=== PATIENT | female | born 1985 | race Caucasian/White ===

== ENCOUNTER 2018-03-26 23:00 | Emergency (ER) | payer MEDICAID ==
[2018-03-27 00:38] LABS: APPEARANCE,URINE SLIGHTLY-CLOUDY; BILIRUBIN,URINE NEGATIVE (NEGATIVE); COLOR,URINE YELLOW; GLUCOSE, URINE NEGATIVE (NEGATIVE); KETONES,URINE NEGATIVE (NEGATIVE); LEUKOCYTE ESTERASE,URINE LARGE (NEGATIVE); NITRITE,URINE NEGATIVE (NEGATIVE); PROTEIN,URINE 100 mg/dL (NEGATIVE); URINE SPECIFIC GRAVITY 1.016; UROBILINOGEN,URINE NEGATIVE mg/dL (<2.0)
[2018-03-27] MEDS ORDERED: ONDANSETRON ODT 4 MG TAB (6 TAB/ER DISP) PO PRN (01:11)
[2018-03-27] MEDS ORDERED: LIDOCAINE 1% INJ-PF (10 MG/ML) 30 ML SDV INJ ONE (01:11)
[2018-03-27] MEDS ORDERED: CEFTRIAXONE INJ 1000 MG VIAL IM ONE (01:11)
--- NOTE | 2018-03-27 01:15 | ER Document Report ---
ED General - General Chief Complaint: Urinary Problem Stated Complaint: BACK PAIN Time Seen by Provider: 03/27/18 00:08 Mode of Arrival: Ambulatory Information source: Patient Notes: 32-year-old female patient presents the emergency department with urinary frequency and dysuria for the past 10 days with worsening over the last 2 days. Patient reports that she feels like she has a urinary tract infection. Patient states that she has been trying to drink cranberry juice in an attempt to cure it. Patient reports that her last UTI was in 2013. Patient denies any other known medical history. Patient denies any fevers, nausea, vomiting or chills. TRAVEL OUTSIDE OF THE [place] IN LAST 30 DAYS: No - Related Data Allergies/Adverse Reactions: No Known Allergies Allergy (Verified 03/27/18 00:18) Past Medical History - General Information source: Patient - Social History Smoking Status: Never Smoker Cigarette use (# per day): No Chew tobacco use (# tins/day): No Smoking Education Provided: No Frequency of alcohol use: Social Drug Abuse: None Lives with: Spouse/Significant other Family History: Reviewed & Not Pertinent Patient has suicidal ideation: No Patient has homicidal ideation: No - Medical History Medical History: Negative Renal/ Medical History: Denies: Hx Peritoneal Dialysis Past Surgical History: Reports: Hx Tubal Ligation - Immunizations Immunizations up to date: Yes Hx Diphtheria, Pertussis, Tetanus Vaccination: Yes Review of Systems - Review of Systems Constitutional: No symptoms reported EENT: No symptoms reported Cardiovascular: No symptoms reported Respiratory: No symptoms reported Gastrointestinal: No symptoms reported Genitourinary: No symptoms reported Female Genitourinary: See HPI Musculoskeletal: No symptoms reported Skin: No symptoms reported Hematologic/Lymphatic: No symptoms reported Neurological/Psychological: No symptoms reported Physical Exam - Vital signs Vitals: Temp Pulse Resp BP Pulse Ox 98.4 F 87 18 149/94 H 100 03/26/18 23:39 03/26/18 23:39 03/26/18 23:39 03/26/18 23:39 03/26/18 23:39 - Notes Notes: PHYSICAL EXAMINATION: GENERAL: Well-appearing, well-nourished and in no acute distress. HEAD: Atraumatic, normocephalic. EYES: Pupils equal round and reactive to light, extraocular movements intact, conjunctiva are normal. ENT: Nares patent, oropharynx clear without exudates. Moist mucous membranes. NECK: Normal range of motion, supple without lymphadenopathy LUNGS: Breath sounds clear to auscultation bilaterally and equal. No wheezes rales or rhonchi. HEART: Regular rate and rhythm without murmurs ABDOMEN: Soft, nontender, nondistended abdomen. No guarding, no rebound. No masses appreciated. Female : Mild CVA tenderness. Musculoskeletal: Normal range of motion, no pitting or edema. No cyanosis. NEUROLOGICAL: Cranial nerves grossly intact. Normal speech, normal gait. Normal sensory, motor exams PSYCH: Normal mood, normal affect. SKIN: Warm, Dry, normal turgor, no rashes or lesions noted. Course - Re-evaluation Re-evalutation: 32-year-old female presents with UTI symptoms over the last 10 days worsening in the last 48 hours. Patient denies any flank pain however she does have mild CVA tenderness. Patient denies any fever. Patient's urinalysis reveals large leukocytes and >182 white blood cells. Patient denies any history of any kidney stones. Offered patient additional workup to include blood work. Patient did decline any further workup stating that she knows she has a UTI and she would just like to be treated for that. Patient is not tachycardic does not appear to be acutely ill. Due to the excess white blood cells in the urine patient is agreeable to taking a shot of Rocephin here in the emergency department and will be discharged on oral antibiotics as well as urinary anesthetics. Patient was given strict ED return precautions to include returning for worsening pain, development of flank pain or development of fever. Patient does understand these return precautions and agrees to same. - Vital Signs Vital signs: Temp Pulse Resp BP Pulse Ox 98.2 F 84 18 136/85 H 98 03/27/18 01:30 03/27/18 01:30 03/27/18 01:30 03/27/18 01:30 03/27/18 01:30 - Laboratory Laboratory results interpreted by me: 03/27/18 00:10 Urine Protein 100 H Urine Blood SMALL H Ur Leukocyte Esterase LARGE H Discharge - Discharge Clinical Impression: Urinary tract infection Qualifiers: Urinary tract infection type: site unspecified Hematuria presence: with hematuria Qualified Code(s): N39.0 - Urinary tract infection, site not specified Condition: Stable Disposition: HOME, SELF-CARE Additional Instructions: Urinary Tract Infection Your evaluation indicates that you have a urinary tract infection. This is due to germs growing in the bladder. This is a common problem. This infection usually responds quickly to antibiotics. Your antibiotic should be taken exactly as prescribed. Drink plenty of fluids -- three to four quarts a day. Occasionally, a bladder anesthetic will be prescribed to help stop the feeling of urgency until the antibiotic has a chance to clear the infection. This may cause your urine to be dark orange. Certain urine infections require a culture. If the doctor obtained a culture, the results will be back in two days. You should call to see if a change in treatment is needed. A repeat urinalysis after you finish treatment is often recommended. The physician will let you know if further testing is required. Call the doctor if you develop fever, chills, flank pain, inability to urinate, or blood in the urine. Rocephin You have been given an injection of an antibiotic called Rocephin ( ceftriaxone). Sometimes the injection must be combined with antibiotic pills. For some infections, such as an uncomplicated ear infection, Rocephin provides all the antibiotic that's needed. The antibiotic will be in your body for about two days. For serious infections, we usually repeat doses of Rocephin daily. Side effects are very unusual following a shot. Women may develop vaginal yeast infections, and babies can get yeast (thrush) in the mouth following the use of antibiotics. Contact your physician if you have symptoms with this medication. Allergy to this antibiotic can result in hives, wheezing, faintness, or itching. If symptoms of allergy occur, call the doctor at once. Cephalexin The antibiotic you've been prescribed is a member of the cephalosporin class. This type of antibiotic covers a wide variety of infections, including those of the skin, lungs, and urinary tract. It's useful for staph infections. This antibiotic is slightly similar to the penicillin family. In rare cases , a person who is allergic to penicillin will also be allergic to this medication. If you have had a severe allergic reaction to penicillin, and have not taken this antibiotic since that time, notify your doctor. Antibiotics which cover many germs ("broad spectrum" antibiotics) are more likely to cause diarrhea or "yeast" infections. Women prone to vaginal yeast problems may suffer an attack after taking this antibiotic. In infants, oral thrush (white spots "stuck" on the cheek) or yeast diaper rash may result. See your doctor if these problems occur. Call at once if you develop itching, hives , shortness of breath, or lightheadedness. Urinary Anesthetic Agent You have been given a medication for urinary tract discomfort. This medicine numbs the lining of the bladder and urethra, resulting in less pain, burning, and urgency. You may take it as needed, according to instructions. When the symptoms resolve, you can stop this medication (be sure to continue any other medications the doctor has given you). This medicine turns the urine a dark orange. It may stain underwear. Occasionally, it can cause nausea. Return for evaluation if there are any unexpected effects, such as itching, hives, or shortness of breath. Antinausea Medication You have been given a medication to suppress nausea and vomiting. This type of medication can be given as a shot, pill, or suppository. It will usually last for many hours. Pills and shots usually last six to eight hours, suppositories last about 12 hours. For the typical illness, only one or two doses of the medication may be necessary. Mild lightheadedness may occur. This type of medicine can cause drowsiness. Do not drive or operate dangerous machinery while under its influence. Do not mix with alcohol. See your doctor at once if you have muscle spasms or tightness, or uncontrollable motions (particularly of the neck, mouth, or jaw). Persistent vomiting or severe lightheadedness should also be evaluated by the physician. Please keep the established appointment you have with your primary care provider. They can recheck your urine to make sure the infection has cleared. Please return to the emergency department if you develop worsening symptoms such as increasing fever, pain or persistent vomiting. Be sure to complete all of the antibiotics even if your symptoms resolved. Prescriptions: Cephalexin Monohydrate [Keflex 500 mg Capsule] 500 mg PO Q6H 5 Days #20 capsule Ondansetron [Zofran Odt 4 mg Tablet] 1 - 2 tab PO Q4H PRN #15 tab.rapdis PRN Reason: For Nausea/Vomiting Phenazopyridine HCl [Pyridium 100 Mg Tablet] 100 mg PO TID #9 tablet Referrals: ZA LARSEN MD [Primary Care Provider] - Follow up as needed
[2018-03-27] MEDS ORDERED: HYDROCODONE/ACETAMINOPHEN 5-325 MG (6 TAB/ER DISP) PO PRN (01:27)
[2018-03-27 01:33] VITALS: BP 136/85
== END 2018-03-27 01:58 | disposition home or self-care (01) ==
LOC: ER 23:00
DX: N39.0 Urinary tract infection, site not specified (principal); R31.9 Hematuria, unspecified; R35.0 Frequency of micturition; R30.0 Dysuria
CPT/HCPCS: 99283; 96372; 87086; 81025; 87088; 81001; 87186; J3490; J0696

== ENCOUNTER 2018-06-14 15:41 | Emergency (ER) | payer MEDICAID ==
--- NOTE | 2018-06-14 16:24 | RADIOLOGY REPORT (SQ) ---
EXAM DESCRIPTION: SHOULDER LEFT 2 OR MORE VIEWS COMPLETED DATE/TIME: 06/14/2018 4:17 pm REASON FOR STUDY: fall, shoulder pain COMPARISON: None. NUMBER OF VIEWS: Three views. TECHNIQUE: Internal rotation, external rotation, and Y view images acquired of the left shoulder. LIMITATIONS: None. FINDINGS: MINERALIZATION: Normal. BONES: No acute fracture or dislocation. No worrisome bone lesions. JOINTS: No dislocation. VISUALIZED LUNGS AND RIBS: No pneumothorax. No rib fracture. SOFT TISSUES: No radiopaque foreign body. OTHER: No other significant finding. IMPRESSION: NEGATIVE STUDY OF THE LEFT SHOULDER. NO RADIOGRAPHIC EVIDENCE OF ACUTE INJURY. TECHNICAL DOCUMENTATION: JOB ID: [id number] [employer]- All Rights Reserved Reading location - IP/workstation name: [email or web address]
--- NOTE | 2018-06-14 16:26 | ER Document Report ---
ED Extremity Problem, Upper - General Mode of Arrival: Ambulatory Information source: Patient TRAVEL OUTSIDE OF THE [place] IN LAST 30 DAYS: No <MIGUEL ANGEL STYLES - Last Filed: 06/14/18 21:51> <ACE SHAW - Last Filed: 06/19/18 14:43> - General Chief Complaint: Shoulder Injury Stated Complaint: SHOULDER INJURY Time Seen by Provider: 06/14/18 15:57 Notes: 32 y.o female presents to the ED with LUE/shoulder injury that occurred last night around 9:30pm. Pt reports that she was playing with her child and and fell into a door frame. She states that her pain is exacerbated with movement, hurts to breath, sneeze, laugh or turn her neck in certain ways. Pt reports some tingling down the lateral side of her LUE. Pt reports that she takes Iron supplements and 100mg of Zoloft daily (MIGUEL ANGEL STYLES) - Related Data Allergies/Adverse Reactions: No Known Allergies Allergy (Verified 03/27/18 00:18) Past Medical History - General Information source: Patient, [facility] - Social History Smoking Status: Never Smoker Chew tobacco use (# tins/day): No Frequency of alcohol use: Social Drug Abuse: None Family History: Reviewed & Not Pertinent Renal/ Medical History: Denies: Hx Peritoneal Dialysis Past Surgical History: Reports: Hx Tubal Ligation - Immunizations Immunizations up to date: Yes Hx Diphtheria, Pertussis, Tetanus Vaccination: Yes <MIGUEL ANGEL STYLES - Last Filed: 06/14/18 21:51> Review of Systems - Review of Systems Constitutional: No symptoms reported EENT: No symptoms reported Cardiovascular: No symptoms reported Gastrointestinal: No symptoms reported Genitourinary: No symptoms reported Female Genitourinary: No symptoms reported Musculoskeletal: See HPI, Joint pain - LT shoulder Skin: No symptoms reported Hematologic/Lymphatic: No symptoms reported Neurological/Psychological: See HPI, Tingling - laterally to LUE -: Yes All other systems reviewed and negative <MIGUEL ANGEL STYLES - Last Filed: 06/14/18 21:51> Physical Exam <MIGUEL ANGEL STYLES - Last Filed: 06/14/18 21:51> <ACE SHAW - Last Filed: 06/19/18 14:43> - Vital signs Vitals: Temp Pulse Resp BP Pulse Ox 98.5 F 74 20 137/84 H 98 06/14/18 15:46 06/14/18 15:46 06/14/18 15:46 06/14/18 15:46 06/14/18 15:46 - Notes Notes: Physical Exam: General: Alert, appears well. HEENT: Normocephalic. Atraumatic. PERRL. Extraocular movements intact. Oropharynx clear. Neck: Supple. Non-tender. Respiratory: No respiratory distress. Clear and equal breath sounds bilaterally. Cardiovascular: Regular rate and rhythm. Abdominal: Normal Inspection. Non-tender. No distension. Normal Bowel Sounds. Back: Tender to palpate and tightness to LT trapezium and scapular area, No withdrawing, no bruising or abrasions. No deformity or step off. Extremities: TTP to LT trapezium and scapular area, No withdrawing. Moves all four extremities with full ROM. LUE grossly neurovascularly intact. Neurological: Normal cognition. AAOx3. Normal speech. Psychological: Normal affect. Normal Mood. Skin: Warm. Dry. Normal color. (MIGUEL ANGEL STYLES) Course <MIGUEL ANGEL STYLES - Last Filed: 06/14/18 21:51> - Diagnostic Test Radiology reviewed: Reports reviewed <ACE SHAW - Last Filed: 06/19/18 14:43> - Re-evaluation Re-evalutation: 06/14/18 18:44 Negative imaging studies. Patient will be discharged with anti-inflammatories for trapezius cervical strain. Advised patient to follow-up in 2 weeks if symptoms are not improving. (ACE SHAW) - Vital Signs Vital signs: Temp Pulse Resp BP Pulse Ox 97.8 F 67 16 140/84 H 100 06/14/18 18:51 06/14/18 18:51 06/14/18 18:51 06/14/18 18:51 06/14/18 18:51 Discharge <MIGUEL ANGEL STYLES - Last Filed: 06/14/18 21:51> <ACE SHAW - Last Filed: 06/19/18 14:43> - Discharge Clinical Impression: Trapezius muscle strain Qualifiers: Encounter type: initial encounter Laterality: left Qualified Code(s): S46.812A - Strain of other muscles, fascia and tendons at shoulder and upper arm level, left arm, initial encounter Strain, cervical Qualifiers: Encounter type: initial encounter Qualified Code(s): S16.1XXA - Strain of muscle, fascia and tendon at neck level, initial encounter Condition: Good Disposition: HOME, SELF-CARE Instructions: Neck Injury (Cervical Strain) ([facility]), Shoulder Injury ([facility]) Prescriptions: Naproxen 500 mg PO BID #20 tablet Referrals: ZA LARSEN MD [Primary Care Provider] - Follow up as needed Scribe Attestation: 06/19/18 14:43 I personally performed the services described in the documentation, reviewed and edited the documentation which was dictated to the scribe in my presence, and it accurately records my words and actions. (ACE SHAW) Scribe Documentation - Scribe Written by Tereza:: Tereza Joaquin 06/14/18 1704 acting as scribe for :: David <MIGUEL ANGEL STYLES - Last Filed: 06/14/18 21:51>
[2018-06-14] MEDS ORDERED: KETOROLAC TROMETHAMINE 60 MG/2 ML SDV IM ONE (16:51)
--- NOTE | 2018-06-14 17:28 | RADIOLOGY REPORT (SQ) ---
EXAM DESCRIPTION: CLAVICLE LEFT COMPLETED DATE/TIME: 06/14/2018 5:11 pm REASON FOR STUDY: pain in clavicle region COMPARISON: None. NUMBER OF VIEWS: Two views. TECHNIQUE: Frontal and angled images were acquired of the left clavicle. LIMITATIONS: None. FINDINGS: MINERALIZATION: Normal. BONES: No acute fracture or dislocation. No worrisome bone lesions. SOFT TISSUES: No obvious swelling or foreign body. OTHER: No other significant finding. IMPRESSION: NEGATIVE STUDY OF THE LEFT CLAVICLE. NO RADIOGRAPHIC EVIDENCE OF ACUTE INJURY. TECHNICAL DOCUMENTATION: JOB ID: [id number] [employer]- All Rights Reserved Reading location - IP/workstation name: [email or web address]
--- NOTE | 2018-06-14 18:40 | RADIOLOGY REPORT (SQ) ---
EXAM DESCRIPTION: SCAPULA LEFT COMPLETED DATE/TIME: 06/14/2018 6:26 pm REASON FOR STUDY: scapula pain COMPARISON: Left shoulder x-ray 06/14/2018. TECHNIQUE: Two views of the left scapula were obtained. LIMITATIONS: None. FINDINGS: There is no acute fracture or dislocation. The soft tissues are unremarkable. IMPRESSION: No radiographic evidence of acute fracture. TECHNICAL DOCUMENTATION: JOB ID: [id number] [employer]- All Rights Reserved Reading location - IP/workstation name: [email or web address]
[2018-06-14 18:53] VITALS: BP 140/84
== END 2018-06-14 18:53 | disposition home or self-care (01) ==
LOC: ER 15:41
DX: S46.812A Strain of other muscles, fascia and tendons at shoulder and upper arm level, left arm, initial encounter (principal); S16.1XXA Strain of muscle, fascia and tendon at neck level, initial encounter; R20.0 Anesthesia of skin; W22.8XXA Striking against or struck by other objects, initial encounter
CPT/HCPCS: 99283; 96372; 73000; 73010; 73030; J1885

== ENCOUNTER 2019-02-16 19:23 | Emergency (ER) | payer MEDICAID ==
[2019-02-16] MEDS ORDERED: KETOROLAC TROMETHAMINE INJ/PF 30 MG/1 ML SDV IM ONE (20:09)
--- NOTE | 2019-02-16 20:11 | ER Document Report ---
ED Medical Screen (RME) - General Chief Complaint: Low Back Pain Stated Complaint: LOSS OF MOBILITY Time Seen by Provider: 02/16/19 20:05 Information source: Patient TRAVEL OUTSIDE OF THE [place] IN LAST 30 DAYS: No - HPI Patient complains to provider of: Low back pain, weakness, bowel or bladder dysfunction Notes: 02/16/19 20:10 Patient is here with complaints of severe low back pain. States been having some pain for the last several days and it got much worse over the last few days. She states that she was sweeping the floor when she bent over she had sudden numbness from her knee down with tingling from her waist down in both legs. She states that she has urinated on herself 3 times. She states that she had a bowel movement and unintentionally a few days ago. She denies any trauma or fall. She denies fever. She denies IV drug use. She denies any history of similar symptoms. No prior back surgery. Exam Difficult to perform full exam in triage room. Patient is noted to be leaning over a counter sitting on a stool. She has some tenderness to the midline lumbar spine. It is difficult to get her in a position to check reflexes. She does complain of decreased sensation to the bilateral lower extremities. Unable to perform rectal exam in triage room. Plan With patient's complaints of severe back pain with numbness, tingling, weakness to lower extremities and bowel and bladder dysfunction, I have ordered RI of the lumbar spine to rule out cauda equina. Toradol has been ordered for pain. An initial examination was made on the patient as part of the triage process, and it was determined a more comprehensive evaluation was necessary. Initial labs were ordered and patient was transferred to another provider in the ED who assumed care and finished evaluation and plan. - Related Data Allergies/Adverse Reactions: No Known Allergies Allergy (Verified 02/16/19 19:35) Past Medical History - Social History Drug Abuse: None Renal/ Medical History: Denies: Hx Peritoneal Dialysis Psychiatric Medical History: Reports: Hx Depression Past Surgical History: Reports: Hx Section - x3, Hx Tubal Ligation - Immunizations Immunizations up to date: Yes Hx Diphtheria, Pertussis, Tetanus Vaccination: Yes Physical Exam - Vital signs Vitals: Temp Pulse Resp BP Pulse Ox 98.2 F 82 20 143/100 H 100 02/16/19 20:00 02/16/19 20:00 02/16/19 20:00 02/16/19 20:00 02/16/19 20:00 Course - Vital Signs Vital signs: Temp Pulse Resp BP Pulse Ox 98.2 F 82 20 143/100 H 100 02/16/19 20:00 02/16/19 20:00 02/16/19 20:00 02/16/19 20:00 02/16/19 20:00
--- NOTE | 2019-02-16 22:11 | RADIOLOGY REPORT (SQ) ---
EXAM DESCRIPTION: MR LUMBAR SPINE WITHOUT IV CONTRAST COMPLETED DATE/TME: 02/16/2019 20:09 CLINICAL HISTORY: 33 years, Female, low back pain, bowel/bladder dysfunction, weakness COMPARISON: None. TECHNIQUE: 169 Images stored on PACS. LIMITATIONS: None. FINDINGS: 5 lumbar type vertebral bodies for the purposes of this exam. Vertebral body height and alignment is preserved. No suspicious marrow signal. Normal signal in the visualized spinal cord. The conus medullaris terminates appropriately. Limited evaluation of extraspinal anatomic structures is unremarkable. T12-L1, L1-L2, L2-L3, L3-L4 levels are unremarkable. At L4-L5 there is mild facet arthropathy bilaterally with diffuse disc bulging. No central canal stenosis or neural foraminal compromise. At L5-S1, there is mild facet arthropathy bilaterally. Osteophytic spurring with minimal posterior bulging. No central canal stenosis or neural foraminal compromise. IMPRESSION: Minor degenerative disc disease at L4-5 and L5-S1. Otherwise, unremarkable exam. copyright 2010 [employer]- All Rights Reserved
[2019-02-16] MEDS ORDERED: HYDROMORPHONE HCL INJ/PF 2 MG/ML AMPULE IM ONE (22:32)
[2019-02-16] MEDS ORDERED: ONDANSETRON ODT 4 MG TAB (6 TAB/ER DISP) PO PRN (23:46)
[2019-02-16] MEDS ORDERED: ONDANSETRON 4 MG TAB.RAPDIS PO ONE (23:46)
--- NOTE | 2019-02-16 23:50 | ER Document Report ---
ED General - General Chief Complaint: Low Back Pain Stated Complaint: LOSS OF MOBILITY Time Seen by Provider: 02/16/19 20:05 Notes: Patient is a pleasant 33-year-old female presents with complaint of low back pain. She says she does have history of some recurrent low back pain but is never been this bad. She says that she has been swimming floors a lot and working on her feet. She says that she has noticed increasing pain from the left side of her back. With some numbness going into her legs is worse than the left side. She denies any weakness into her feet. She says that it does hurt a lot to walk and therefore she is had some difficulty walking because of increasing pain when getting on her feet. He did have an episode where she did urinate on herself. There RWE note did mention an episode of loss of bowel control but when I speak to the patient she says that she did have a normal bowel movement today but has not been having actual leakage of stool or signs of decreased rectal tone. No numbness in the perineal region. No fevers. TRAVEL OUTSIDE OF THE [place] IN LAST 30 DAYS: No - Related Data Allergies/Adverse Reactions: No Known Allergies Allergy (Verified 02/16/19 19:35) Past Medical History - General Information source: Patient - Social History Smoking Status: Never Smoker Drug Abuse: None Family History: Reviewed & Not Pertinent Patient has suicidal ideation: No Patient has homicidal ideation: No Renal/ Medical History: Denies: Hx Peritoneal Dialysis Psychiatric Medical History: Reports: Hx Depression Past Surgical History: Reports: Hx Section - x3, Hx Tubal Ligation - Immunizations Immunizations up to date: Yes Hx Diphtheria, Pertussis, Tetanus Vaccination: Yes Review of Systems - Review of Systems Notes: My Normal Review Basic REVIEW OF SYSTEMS: CONSTITUTIONAL : Denies fever, chills, or sweats. Denies recent illness. GASTROINTESTINAL: Denies abdominal pain. Denies n episode of loss of urinary continence. GENITOURINARY: Did have episode of loss of urinary continence SKIN: Denies rash or skin lesions. NEUROLOGICAL: Denies altered mental status or loss of consciousness. Denies weakness or paralysis or loss of use of either side. Denies problems with gait or speech. Denies sensory or motor loss. ALL OTHER SYSTEMS REVIEWED AND NEGATIVE. Physical Exam - Vital signs Vitals: Temp Pulse Resp BP Pulse Ox 98.2 F 82 20 143/100 H 100 02/16/19 20:00 02/16/19 20:00 02/16/19 20:00 02/16/19 20:00 02/16/19 20:00 - Notes Notes: General Appearance: Well nourished, alert, cooperative, no acute distress, moderate obvious discomfort. Vitals: reviewed, See vital signs table. Abdomen: Normal BS, soft, No rigidity, No abdominal tenderness, No guarding, no rebound, no abdominal masses, no organomegaly Back: Pain to palpation in the lumbosacral junction. Pain is worse over the left paraspinal musculature. Extremities: Strength with plantar and dorsiflexion against resistance. Normal Achilles reflex. Patient has good distal sensation in both feet. Good pulses in all extremities, no swelling or tenderness in the extremities, no edema. Skin: warm, dry, appropriate color, no rash Neuro: speech clear, oriented x 3, normal affect, responds appropriately to qu estions. Course - Re-evaluation Re-evalutation: 02/17/19 07:19 Patient looks well. She is feeling some improvement of her pain after receiving the IM dose of Dilaudid. She said the medicine did make little bit nauseous. She is now able to stand and walk. She has good strength in her lower extremities. MRI was probably ordered in triage due to her recent history of bladder issues and increasing pain in her low back to the point where she was having difficulty handling. MRI fortunately is negative. Based on her negative MRI and repeat examination I do not suspect cauda equina syndrome. I talked to patient length about avoiding heavy lifting. I informed her that she should follow-up with her primary care doctor discuss options such as physical therapy to help with her back. I discharged home with a prescription of a few Ultram which will hopefully cause her less nausea and sleepiness in comparison to the other opiate medications. Also provide prescription for Toradol. I informed her return to ER immediately if she has worsening pain, leg weakness or numbness, or she feels that she is worsening in any way. Patient agrees with plan will be discharged home. Dictation of this chart was performed using voice recognition software; therefore, there may be some unintended grammatical errors. - Vital Signs Vital signs: Temp Pulse Resp BP Pulse Ox 98.7 F 82 18 115/67 95 02/16/19 23:56 02/16/19 20:00 02/16/19 23:56 02/16/19 23:56 02/16/19 23:56 Discharge - Discharge Clinical Impression: Low back pain Qualifiers: Chronicity: acute Back pain laterality: bilateral Sciatica presence: with sciatica Sciatica laterality: sciatica of left side Qualified Code(s): M54.42 - Lumbago with sciatica, left side Condition: Good Disposition: HOME, SELF-CARE Additional Instructions: Please take the medications as prescribed. Please do not lift anything heavy over the next several days. Please still get up and walk around so that your back does not become stiff. Please follow-up with your doctor and discuss possible referral to physical therapy as this may help prevent re-exacerbations of your pain. Please return to the ER immediately if you develops loss of control of your bowel function, inability to urinate, or weakness or numbness into your legs. I have prescribed you a medication called Toradol. This medication will not make you sleepy. Do not take other NSAID medicaitons such as Aspirin, Motrin, Ibuprofen, Aleve, or Advil when taking this medication. It is okay to take Tylenol. I have also prescribed you medication called tramadol. This medicine may make you limits sleepy. It is little bit stronger pain medicine for when you are having increasing pain not relieved by Toradol or Tylenol. Please do not drive after taking the tramadol. Prescriptions: Tramadol HCl [Ultram 50 mg Tablet] 50 mg PO Q6HP PRN #10 tablet PRN Reason: For Breakthrough Pain Ketorolac Tromethamine [Toradol 10 mg Tablet] 10 mg PO Q8HP PRN #12 tablet PRN Reason: Ondansetron [Zofran Odt 4 mg Tablet] 1 tab PO Q4H PRN #15 tab.rapdis PRN Reason: For Nausea/Vomiting
[2019-02-16 23:59] VITALS: BP 115/67
== END 2019-02-16 23:59 | disposition home or self-care (01) ==
LOC: ER 19:23
DX: M54.42 Lumbago with sciatica, left side (principal); R20.0 Anesthesia of skin; R32 Unspecified urinary incontinence; R11.0 Nausea; T40.2X5A Adverse effect of other opioids, initial encounter; Y92.238 Other place in hospital as the place of occurrence of the external cause
CPT/HCPCS: 99283; 96372; 72148; S0119; J1885; J1170

== ENCOUNTER 2019-09-07 02:47 | Emergency (ER) | payer MEDICAID ==
[2019-09-07] MEDS ORDERED: ACETAMINOPHEN 325 MG TABLET PO ONE (04:37)
[2019-09-07] MEDS ORDERED: IBUPROFEN 600 MG TABLET PO ONE (04:37)
--- NOTE | 2019-09-07 04:39 | ER Document Report ---
HPI <BAMBI DANIELLE - Last Filed: 09/07/19 08:53> - HPI Pain Level: 5 Context: Patient is a 33-year-old obese female who presents the emergency department with a chief complaint of right ankle pain. Patient was wrestling with her significant other and he dropped her to the ground. At the time her ankle turned to medially and she felt a snap. Patient is able to move her toes, but is unable to move her Achilles area. - CONSTITUTIONAL Constitutional: DENIES: Fever, Chills - REPRODUCTIVE Reproductive: DENIES: : - MUSCULOSKELETAL Musculoskeletal: REPORTS: Extremity pain - right ankle - DERM Skin Color: Normal Skin Problems: None <CHICHI SCHAFFER - Last Filed: 09/07/19 09:06> - HPI Time Seen by Provider: 09/07/19 04:05 Past Medical History - Social History Smoking Status: Current Every Day Smoker Family History: Reviewed & Not Pertinent Patient has suicidal ideation: No Patient has homicidal ideation: No Renal/ Medical History: Denies: Hx Peritoneal Dialysis Psychiatric Medical History: Reports: Hx Depression Past Surgical History: Reports: Hx Section - x3, Hx Tubal Ligation - Immunizations Immunizations up to date: Yes Hx Diphtheria, Pertussis, Tetanus Vaccination: Yes <CHICHI SCHAFFER - Last Filed: 09/07/19 09:06> Vertical Provider Document - CONSTITUTIONAL Agree With Documented VS: Yes Exam Limitations: No Limitations General Appearance: No Apparent Distress - INFECTION CONTROL TRAVEL OUTSIDE OF THE [place] IN LAST 30 DAYS: No - HEENT HEENT: Atraumatic, Normocephalic, PERRLA - NECK Neck: Normal Inspection - RESPIRATORY Respiratory: Breath Sounds Normal, No Respiratory Distress - CARDIOVASCULAR Cardiovascular: Regular Rate, Regular Rhythm Pulses: Normal: Posterior tibial, Dorsalis pedis - MUSCULOSKELETAL/EXTREMETIES Musculoskeletal/Extremeties: Tender - right;Achilles tendon area, Edema - right ankle. negative: FROM - decreased ROM; - NEURO Level of Consciousness: Awake, Alert, Appropriate Motor/Sensory: No Motor Deficit, No Sensory Deficit - DERM Integumentary: Warm, Dry, No Rash <CHICHI SCHAFFER - Last Filed: 09/07/19 09:06> Course - Re-evaluation Re-evalutation: 09/07/19 08:50 Ankle X-Ray 09/07/19 00:00 IMPRESSION: No acute fracture or dislocation. copyright 2010 [employer]- All Rights Reserved Extremity Ultrasound 09/07/19 04:37 IMPRESSION: 1. Examination is unremarkable sonographically. I discussed with patient negative images results at bedside. I discussed use of ankle stirrup and crutches. I discussed close follow-up with orthopedics. Patient stable for discharge. - Vital Signs Vital signs: Temp Pulse Resp BP Pulse Ox 98.0 F 95 17 149/91 H 98 09/07/19 02:55 09/07/19 02:55 09/07/19 02:55 09/07/19 02:55 09/07/19 02:55 <BAMBI DANIELLE - Last Filed: 09/07/19 08:53> - Re-evaluation Re-evalutation: 09/07/19 06:32 Patient's right ankle x-ray is negative for any acute fractures. Patient still has tenderness to her Achilles tendon area. The aviation survival technician of that is on does not do Achilles tendon scans. She states that the person who does them will be here in the morning. I relayed this information on to the patient. Patient is opting to wait for dayshift to get here to have her Achilles tendon evaluated via ultrasound. 09/07/19 08:00 Handoff given to Bambi Danielle. She will follow up on the ultrasound. - Vital Signs Vital signs: Temp Pulse Resp BP Pulse Ox 98.0 F 95 17 149/91 H 98 09/07/19 02:55 09/07/19 02:55 09/07/19 02:55 09/07/19 02:55 09/07/19 02:55 <CHICHI SCHAFFER - Last Filed: 09/07/19 09:06> Procedures - Immobilization ankle Pre-Proc Neuro Vasc Exam: Normal Immobilizer type: Ankle stirrup Performed by: Provider assisted Post-Proc Neuro Vasc Exam: Normal Alignment checked and good: Yes <BAMBI DANIELLE - Last Filed: 09/07/19 08:53> Discharge <BAMBI DANIELLE - Last Filed: 09/07/19 08:53> <CHICHI SCHAFFER - Last Filed: 09/07/19 09:06> - Discharge Clinical Impression: Ankle injury Qualifiers: Encounter type: initial encounter Laterality: unspecified laterality Qualified Code(s): S99.919A - Unspecified injury of unspecified ankle, initial encounter Condition: Stable Disposition: HOME, SELF-CARE Instructions: Ankle Stirrup Splint ([facility]), Use of Crutches ([facility]), Ice & Elevation ([facility]), Sprained Ankle ([facility]) Additional Instructions: As we discussed you have been seen and treated in the emergency department for an injury to your ankle. Please make sure use ankle stirrup and crutches as needed. Please also follow-up with orthopedics, phone numbers will be provided in this packet. Please return to the emergency department for any concerns. Forms: Return to Work Referrals: SÁNCHEZ STEWART PA-C [Primary Care Provider] - Follow up as needed TORIN OTERO MD [ACTIVE STAFF] - Follow up as needed
--- NOTE | 2019-09-07 05:10 | RADIOLOGY REPORT (SQ) ---
EXAM DESCRIPTION: XR ANKLE 3 OR MORE VIEWS COMPLETED DATE/TME: 09/07/2019 00:00 CLINICAL HISTORY: 33 years, Female, bone tenderness COMPARISON: None. NUMBER OF VIEWS: Three TECHNIQUE: Three views of the right ankle LIMITATIONS: None. FINDINGS: No acute fracture or dislocation. Ankle mortise is intact. No large soft tissue swelling. No radiopaque foreign body. IMPRESSION: No acute fracture or dislocation. copyright 2010 [employer]- All Rights Reserved
--- NOTE | 2019-09-07 08:16 | RADIOLOGY REPORT (SQ) ---
EXAM DESCRIPTION: U/S EXTREMITY NONVASCULAR LTD COMPLETED DATE/TIME: 09/07/2019 7:59 am REASON FOR STUDY: eval Achilles tendon; ankle pain COMPARISON: None. TECHNIQUE: Dynamic and static grayscale images acquired of the localized site of clinical concern an d recorded on PACS. Additional selected color Doppler and spectral images recorded. SITE OF CONCERN: Right leg Achilles tendon LIMITATIONS: None. FINDINGS: The right Achilles tendon was scanned. No evidence of a tear by ultrasound examination. IMPRESSION: 1. Examination is unremarkable sonographically. TECHNICAL DOCUMENTATION: JOB ID: [id number] [facility]- All Rights Reserved Reading location - IP/workstation name: [email or web address]
[2019-09-07 09:42] VITALS: BP 125/92
== END 2019-09-07 09:42 | disposition home or self-care (01) ==
LOC: ER 02:47
PROC: 2W3QX1Z Immobilization of Right Lower Leg using Splint (ICD-10-PCS; principal; 2019-09-07)
DX: S99.919A Unspecified injury of unspecified ankle, initial encounter (principal); M25.571 Pain in right ankle and joints of right foot; X50.1XXA Overexertion from prolonged static or awkward postures, initial encounter; Y93.72 Activity, wrestling
CPT/HCPCS: 99284; 73610; 76882; 29515; L1902; J3490 ×2

== ENCOUNTER 2019-10-21 00:32 | Emergency (ER) | payer MEDICAID ==
--- NOTE | 2019-10-21 05:17 | ER Document Report ---
ED General - General Chief Complaint: Numbness Stated Complaint: NUMB, LEFT ARM FEELS HEAVY, FEET NUMBNESS Time Seen by Provider: 10/21/19 04:32 Primary Care Provider: THAO RENDON FNP-BC [Primary Care Provider] - Follow up as needed TRAVEL OUTSIDE OF THE [place] IN LAST 30 DAYS: No - HPI Notes: Patient is a 34-year-old female with a history of anxiety who presents complain ing vague neurological symptoms primarily to her feet, but states that it is her whole body that she will feel 'shocks' through. Patient states that this is been an ongoing issue for "a long time." Patient states that she is currently working with her family doctor with her anxiety. She also has vitamin D and B deficiencies. Patient states that she has had a slow increase in some of the symptoms overall. Patient states that her hands will shake on occasion. Denies drug allergies. Denies drug use. Denies any headache, fever, neck pain, changes in vision/speech/mentation/hearing, URI, sore throat, chest pain, palpitations, syncope, cough, shortness of breath, wheeze, dyspnea, abdominal pain, nausea/vomiting/diarrhea, urinary retention, dysuria, hematuria, loss of control of bowel or bladder, saddle anesthesia, muscle paralysis/weakness, or rash. - Related Data Allergies/Adverse Reactions: No Known Allergies Allergy (Verified 02/16/19 19:35) Home Medications: effexor 75 mg qday. xanax 1.25 mg qday. iron tab x2. vitamin d 2 tabs qday. floyd control Past Medical History - Social History Smoking Status: Current Every Day Smoker Frequency of alcohol use: Occasional Drug Abuse: None Family History: Reviewed & Not Pertinent Patient has suicidal ideation: No Patient has homicidal ideation: No Renal/ Medical History: Denies: Hx Peritoneal Dialysis Psychiatric Medical History: Reports: Hx Depression Past Surgical History: Reports: Hx Section - x3, Hx Tubal Ligation - Immunizations Immunizations up to date: Yes Hx Diphtheria, Pertussis, Tetanus Vaccination: Yes Review of Systems - Review of Systems -: Yes All other systems reviewed and negative Physical Exam - Vital signs Vitals: Temp Pulse Resp BP Pulse Ox 98.7 F 77 22 H 152/90 H 98 10/21/19 00:47 10/21/19 00:47 10/21/19 00:47 10/21/19 00:47 10/21/19 00:47 - Notes Notes: PHYSICAL EXAMINATION: GENERAL: Well-appearing, well-nourished and in no acute distress. A&Ox4. Answers questions appropriately. HEAD: Atraumatic, normocephalic. Non-tender. EYES: Pupils equal round and reactive to light, extraocular movements intact, sclera anicteric, conjunctiva are normal. No nystagmus. vis parnell intact. ENT: Nares patent and without discharge. oropharynx clear without exudates. No tonsilar hypertrophy or erythema. Moist mucous membranes. NECK: Normal range of motion, supple without lymphadenopathy. No rigidity/meningismus. No midline tenderness. LUNGS: Breath sounds clear to auscultation bilaterally and equal. No wheezes rales or rhonchi. HEART: Regular rate and rhythm without murmurs, rubs, gallops. Musculoskeletal: Ext b/l: FROM to passive/active. Strength 5+/5. No deficits noted. No bony tenderness of extremities. Extremities: No cyanosis, clubbing, or edema b/l. Peripheral pulses 2+. Capillary refill less than 2 seconds. NEUROLOGICAL: NIH 0. GCS 15. Cranial nerves grossly intact. Normal speech, normal gait. Normal sensory, motor exams. PSYCH: Normal mood, normal affect. SKIN: Warm, Dry, normal turgor, no rashes or lesions noted. Course - Re-evaluation Re-evalutation: 10/21/19 05:15 Patient is an afebrile, well-hydrated, 34-year-old female who presents with chronic nonspecific neurological complaints that area generalized. Vitals are acceptable without significant tachycardia, tachypnea, hypoxia. PE is otherwise unremarkable for any focal neurological deficits. Patient will hold her hand up and it will be subtly shaking which is 1 of her concerns that has been ongoing for a while, but throughout our evaluation and conversation I was watching her hand very closely when she was not paying attention to it and it was not shaking at all. I did reveal this to the patient. I did review with patient that I can order basic labs to further evaluate, but patient states that she had labs recently performed by her family doctor and does not want any work-up performed otherwise. I did offer her information for a neurologist which she would like. Patient is aware that she can return at any time for any worsening or concerning symptoms and we can start with a basic work-up here if needed. She is to recheck with your PCM in the next few days otherwise. Patient is in agreement with plan. - Vital Signs Vital signs: Temp Pulse Resp BP Pulse Ox 98.7 F 71 17 138/76 H 98 10/21/19 00:47 10/21/19 02:39 10/21/19 02:39 10/21/19 02:39 10/21/19 02:39 Discharge - Discharge Clinical Impression: Neurological complaint Condition: Stable Disposition: HOME, SELF-CARE Additional Instructions: Rest, Ice, Compression, Elevation Tylenol/ibuprofen as needed Light stretches daily Strength exercises as able Moist heat and massage may help F/u with your PCP in 3-5 days for a recheck Schedule an appointment with neurology for further evaluation and management Return to the ED with any worsening symptoms and/or development of fever, headache, chest pain, palpitations, syncope, shortness of breath, trouble breathing, abdominal pain, n/v/d, muscle weakness/paralysis, numbness/tingling, swelling, redness, or other worsening symptoms that are concerning to you. Prescriptions: Hydroxyzine Pamoate [Vistaril 25 mg Capsule] 25 mg PO TID PRN #15 capsule PRN Reason: Forms: Elevated Blood Pressure, Smoking Cessation Education Referrals: THAO RENDON FNP-BC [Primary Care Provider] - Follow up as needed TATE ANAND MD [NO LOCAL MD] - Follow up as needed SUSHMA LUGO MD [COMMUNITY BASED STAFF] - Follow up as needed
[2019-10-21 05:41] VITALS: BP 139/87
== END 2019-10-21 05:40 | disposition home or self-care (01) ==
LOC: ER 00:32
DX: R20.0 Anesthesia of skin (principal); F41.9 Anxiety disorder, unspecified; E53.9 Vitamin B deficiency, unspecified; E55.9 Vitamin D deficiency, unspecified; Z79.899 Other long term (current) drug therapy; Z79.3 Long term (current) use of hormonal contraceptives; F17.200 Nicotine dependence, unspecified, uncomplicated
CPT/HCPCS: 99283

== ENCOUNTER 2020-05-20 16:09 | Emergency (ER) | payer MEDICAID ==
[2020-05-20] MEDS ORDERED: OXYCODONE-ACETAMINOPHEN 5-325 MG TABLET PO ONE (16:29)
--- NOTE | 2020-05-20 16:41 | ER Document Report ---
ED Extremity Problem, Lower - General Chief Complaint: Foot Injury Stated Complaint: FOOT INJURY Time Seen by Provider: 05/20/20 16:27 Primary Care Provider: [facility] [[facility]] - Follow up as needed DIPIKA DELANEY MD [ACTIVE PROVISIONAL STAFF] - Follow up as needed THAO RENDON, BUFFING AND SUEDING MACHINE OPERATOR-BC [NO LOCAL MD] - Follow up as needed ROSEANNE ANDREWS JR, DO [ACTIVE PROVISIONAL STAFF] - Follow up as needed Mode of Arrival: Wheelchair Information source: Patient Notes: 34-year-old female presented to ED for a for a fracture to the right foot. She is going to[facility] and they gave her a picture of the foot and said that she had a fracture to the fourth toe that was displaced and that she needed an Ortho consult immediately. I did speak with the provider at [place], informed them that we will need to re-x-ray the foot because we cannot see her CD and that we will splint the foot and medicate her. Patient states she already has crutches at home. Patient will be treated with Percocet now her. TRAVEL OUTSIDE OF THE [place] IN LAST 30 DAYS: No - HPI Patient complains to provider of: Injury, Pain, Swelling Location: Foot Occurred: This morning Where: Home, Outdoors - All 4 ports Onset/Duration: Sudden Quality of pain: Sharp, Throbbing Severity: Moderate Pain Level: 4 Context: Fell Recent injury: Yes Associated symptoms: Unable to bear weight Exacerbated by: Hanging down, Movement Relieved by: Elevation, Ice - Related Data Allergies/Adverse Reactions: No Known Allergies Allergy (Verified 02/16/19 19:35) Past Medical History - General Information source: Patient - Social History Smoking Status: Never Smoker Frequency of alcohol use: None Drug Abuse: None Lives with: Family Family History: Reviewed & Not Pertinent Patient has suicidal ideation: No Patient has homicidal ideation: No - Past Medical History Cardiac Medical History: Reports: None Pulmonary Medical History: Reports: None EENT Medical History: Reports: None Neurological Medical History: Reports: None Endocrine Medical History: Reports: None Renal/ Medical History: Reports: None Malignancy Medical History: Reports: None GI Medical History: Reports: None Musculoskeletal Medical History: Reports None Skin Medical History: Reports None Psychiatric Medical History: Reports: Hx Depression Traumatic Medical History: Reports: Hx Fractures Infectious Medical History: Reports: None Past Surgical History: Reports: Hx Section - x3, Hx Tubal Ligation - Immunizations Immunizations up to date: Yes Hx Diphtheria, Pertussis, Tetanus Vaccination: Yes Review of Systems - Review of Systems Constitutional: No symptoms reported EENT: No symptoms reported Cardiovascular: No symptoms reported Respiratory: No symptoms reported Gastrointestinal: No symptoms reported Genitourinary: No symptoms reported Female Genitourinary: No symptoms reported Musculoskeletal: Other - Fractured foot Skin: No symptoms reported Hematologic/Lymphatic: No symptoms reported Neurological/Psychological: No symptoms reported -: Yes All other systems reviewed and negative Physical Exam - Vital signs Vitals: Temp Pulse Resp BP Pulse Ox 99.4 F 95 16 143/86 H 99 05/20/20 16:12 05/20/20 16:12 05/20/20 16:12 05/20/20 16:12 05/20/20 16:12 Interpretation: Normal - General General appearance: Appears well, Alert - HEENT Head: Normocephalic, Atraumatic Eyes: Normal Pupils: PERRL - Respiratory Respiratory status: No respiratory distress Chest status: Nontender Breath sounds: Normal Chest palpation: Normal - Cardiovascular Rhythm: Regular Heart sounds: Normal auscultation Murmur: No - Abdominal Inspection: Normal Distension: No distension Bowel sounds: Normal Tenderness: Nontender Organomegaly: No organomegaly - Back Back: Normal, Nontender - Extremities General upper extremity: Normal inspection, Nontender, Normal color, Normal ROM, Normal temperature General lower extremity: Normal ROM, Normal temperature, Normal weight bearing. No: Swapna's sign Foot: Tender, Ecchymosis, Edema, No evidence of FB - Neurological Neuro grossly intact: Yes Cognition: Normal Orientation: AAOx4 [place] Coma Scale Eye Opening: Spontaneous Ricky Coma Scale Verbal: Oriented Ricky Coma Scale Motor: Obeys Commands [place] Coma Scale Total: 15 Speech: Normal Motor strength normal: LUE, RUE, LLE, RLE Sensory: Normal - Psychological Associated symptoms: Normal affect, Normal mood - Skin Skin Temperature: Warm Skin Moisture: Dry Skin Color: Normal Course - Vital Signs Vital signs: Temp Pulse Resp BP Pulse Ox 98.9 F 79 19 123/90 H 100 05/20/20 17:47 05/20/20 17:47 05/20/20 17:47 05/20/20 17:47 05/20/20 17:47 - Diagnostic Test Radiology reviewed: Image reviewed, Reports reviewed Procedures - Immobilization Right Foot Time completed: 17:45 Pre-Proc Neuro Vasc Exam: Normal Immobilizer type: Posterior ankle Performed by: PCT Post-Proc Neuro Vasc Exam: Normal Alignment checked and good: Yes Discharge - Discharge Clinical Impression: Closed fracture of fourth toe of right foot Qualifiers: Encounter type: initial encounter Qualified Code(s): S92.501A - Displaced unspecified fracture of right lesser toe(s), initial encounter for closed fracture Condition: Stable Disposition: HOME, SELF-CARE Additional Instructions: You have a mildly displaced intra-articular fracture of the base of the fourth proximal phalanx of the right foot. You have been treated with a posterior splint which needs to stay in place do not take the splint off until you follow-up with orthopedics. An intra- articular fracture means it goes into the joint. This usually needs to be surgically repaired. Have given you the name and number of 3 career information specialist. Please call and follow-up with someone on Friday morning. Tell you follow-up with orthopedics please keep your foot elevated with ice. Please use your crutches when you walk to the bathroom. Acetaminophen Acetaminophen may be taken for pain relief or fever control. It's much safer than aspirin, offering a wider range of "safe" dosages. It is safe during . Some brand names are Tylenol, Panadol, Datril, Anacin 3, Tempra, and Liquiprin. Acetaminophen can be repeated every four hours. The following are maximum recommended dosages: WEIGHT Dose Drops Elixir Chewable(80mg) (LBS.) drprs=droppers tsp=teaspoon 6 40 mg .4 ml (1/2) 6-11 80 mg .8 ml (full) 1/2 tsp 1 tab 12-16 120 mg 1 1/2 drprs 3/4 tsp 1 1/2 tabs 17-23 160 mg 2 drprs 1 tsp 2 tabs 24-30 240 mg 3 drprs 1 1/2 tsp 3 tabs 30-35 320 mg 2 tsp 4 tabs 36-41 360 mg 2 1/4 tsp 4 1/2 tabs 42-47 400 mg 2 1/2 tsp 5 tabs 48-53 480 mg 3 tsp 6 tabs 54-59 520 mg 3 1/4 tsp 6 1/2 tabs 60-64 560 mg 3 1/2 tsp 7 tabs 65-70 600 mg 3 3/4 tsp 7 1/2 tabs 71-76 640 mg 4 tsp 8 tabs 77-82 720 mg 4 1/2 tsp 9 tabs 83-88 800 mg 5 tsp 10 tabs >89 pounds or adults 650 mg to 900 mg Acetaminophen can be repeated every four hours. Maximum daily dose not to exceed 4000 mg. These maximum recommended dosages are slightly higher than the dosages written on the product container, but these dosages are very safe and well below the toxic dosage for acetaminophen. Ibuprofen Ibuprofen is an excellent, safe drug for pain control. In addition, it has potent antiinflammatory effects which are beneficial, especially in the treatment of injuries, arthritis, or tendonitis. It's best to take ibuprofen with food. Persons with ulcer disease or allergy to aspirin should notify their physician of this before taking ibuprofen. Take the medication exactly as prescribed. Don't take additional doses unless instructed to do so by your doctor. If you develop wheezing, shortness of breath, hives, faintness, stomach pain, vomiting, or dark black stools, return for re-evaluation at once. Oral Narcotic Medication You have been given a prescription for pain control. This medication is a narcotic. It's best taken with food, as nausea can result if taken on an empty stomach. Don't operate machinery or drive within six hours of taking this medication. Do not combine this medicine with alcohol, or with any medication which can cause sedation (such as cold tablets or sleeping pills) unless you get permission from the physician. Narcotics tend to cause constipation. If possible, drink plenty of fluids and eat a diet high in fiber and fruits. FOLLOW-UP CARE: If you have been referred to a physician for follow-up care, call the physicians office for an appointment as you were instructed or within the next two days. If you experience worsening or a significant change in your symptoms, notify the physician immediately or return to the Emergency Department at any time for re-evaluation. Prescriptions: Oxycodone HCl/Acetaminophen [Percocet 5-325 mg Tablet] 1 tab PO Q6HP PRN #10 tablet PRN Reason: For Pain Scale 3-5 Forms: Elevated Blood Pressure Referrals: THAO RENDON FNP-BC [NO LOCAL MD] - Follow up as needed [facility] [Provider Group] - Follow up as needed ROSEANNE ANDREWS JR, [ACTIVE PROVISIONAL STAFF] - Follow up as needed DIPIKA DELANEY MD [ACTIVE PROVISIONAL STAFF] - Follow up as needed
--- NOTE | 2020-05-20 17:02 | RADIOLOGY REPORT (SQ) ---
EXAM DESCRIPTION: FOOT RIGHT COMPLETE IMAGES COMPLETED DATE/TIME: 05/20/2020 4:45 pm REASON FOR STUDY: pain and injury COMPARISON: None. NUMBER OF VIEWS: Three views. TECHNIQUE: AP, lateral and oblique radiographic images acquired of the right foot. LIMITATIONS: None. FINDINGS: MINERALIZATION: Normal. BONES: There is a mildly displaced spiral fracture at the base of the 4th proximal phalanx with the f racture line extending into the metatarsophalangeal joint. SOFT TISSUES: There is mild diffuse soft tissue swelling at the dorsum of the foot. No radiopaque fo reign body. IMPRESSION: Mildly displaced intra-articular fracture at the base of the 4th proximal phalanx. Mild diffuse soft tissue swelling at the dorsum of the right foot. TECHNICAL DOCUMENTATION: JOB ID: [id number] 2010 [employer]- All Rights Reserved Reading location - IP/workstation name: [email or web address]
[2020-05-20 17:48] VITALS: BP 123/90
== END 2020-05-20 18:17 | disposition home or self-care (01) ==
LOC: ER 16:09
PROC: 2W3QX1Z Immobilization of Right Lower Leg using Splint (ICD-10-PCS; principal; 2020-05-20)
DX: S92.501A Displaced unspecified fracture of right lesser toe(s), initial encounter for closed fracture (principal); W19.XXXA Unspecified fall, initial encounter
CPT/HCPCS: 99283

== ENCOUNTER 2020-06-27 16:15 | Emergency (ER) | payer MEDICAID ==
--- NOTE | 2020-06-27 17:13 | ER Document Report ---
ED Medical Screen (RME) - General Chief Complaint: Back Pain Stated Complaint: BACK PAIN,LEG PAIN/TINGLING Time Seen by Provider: 06/27/20 17:03 Mode of Arrival: Ambulatory Information source: Patient Notes: 35-year-old female presented to ED for complaint of low back pain. She states about a month ago she fell to the deck and broke her toe. She states she thinks this pain is from the same fall about 2 weeks ago she started having low back pain so [facility] and they gave her steroids and muscle relaxers which did not help the pain. Now she is having numbness to both legs and the night before last her legs went so numb that she fell. She states at times she urinates without even though when she needs to urinate is incontinent. She states she went back to the [facility] today and they told her she needed to go to the emergency room get an MRI of her back. I have greeted and performed a rapid initial assessment of this patient. A comprehensive ED assessment and evaluation of the patient, analysis of test results and completion of medical decision making process will be conducted by an additional ED providers. TRAVEL OUTSIDE OF THE [place] IN LAST 30 DAYS: No - Related Data Allergies/Adverse Reactions: No Known Allergies Allergy (Verified 06/27/20 17:03) Past Medical History Renal/ Medical History: Denies: Hx Peritoneal Dialysis Psychiatric Medical History: Reports: Hx Depression Traumatic Medical History: Reports: Hx Fractures Past Surgical History: Reports: Hx Section - x3, Hx Tubal Ligation - Immunizations Immunizations up to date: Yes Hx Diphtheria, Pertussis, Tetanus Vaccination: Yes Physical Exam - Vital signs Vitals: Temp Pulse Resp BP Pulse Ox 98.5 F 85 18 145/98 H 99 06/27/20 16:21 06/27/20 16:21 06/27/20 16:21 06/27/20 16:21 06/27/20 16:21 Course - Vital Signs Vital signs: Temp Pulse Resp BP Pulse Ox 98.5 F 85 18 145/98 H 99 06/27/20 16:21 06/27/20 16:21 06/27/20 16:21 06/27/20 16:21 06/27/20 16:21
[2020-06-27 18:18] LABS: ABSOLUTE BASOPHILS # (AUTO) 0.1 10^3/uL (0.0-0.2); ABSOLUTE EOSINOPHILS # (AUTO) 0.2 10^3/uL (0.0-0.6); ABSOLUTE LYMPHOCYTES (AUTO) 2.7 10^3/uL (0.5-4.7); ABSOLUTE MONOCYTES (AUTO) 0.6 10^3/uL (0.1-1.4); ABSOLUTE NEUT (AUTO) 5.5 10^3/uL (1.7-8.2); BASOPHILS % (AUTO) 0.6 % (0-2); EOSINOPHILS % (AUTO) 2.6 % (0-6); HEMATOCRIT 39.4 % (36.0-47.0); HEMOGLOBIN 13.2 g/dL (12.0-15.5); LYMPHOCYTES % (AUTO) 29.5 % (13-45); MEAN CORPUSCULAR HGB CONC 33.5 g/dL (32.0-36.0); MEAN CORPUSCULAR VOLUME 84 fl (80-97); MONOCYTES % (AUTO) 6.8 % (3-13); PLATELET COUNT 309 10^3/uL (150-450); RED BLOOD COUNT 4.71 10^6/uL (3.72-5.28); RED CELL DISTRIBUTION WIDTH 15.7 % (11.5-14.0); SEGMENTED NEUTROPHILS % (AUTO) 60.5 % (42-78); TOTAL CELLS COUNTED % (AUTO) 100 %; WHITE BLOOD COUNT 9.1 10^3/uL (4.0-10.5)
[2020-06-27 18:24] LABS: APPEARANCE,URINE CLOUDY; BILIRUBIN,URINE NEGATIVE (NEGATIVE); COLOR,URINE RED; GLUCOSE, URINE NEGATIVE (NEGATIVE); KETONES,URINE NEGATIVE (NEGATIVE); LEUKOCYTE ESTERASE,URINE TRACE (NEGATIVE); NITRITE,URINE NEGATIVE (NEGATIVE); PROTEIN,URINE 100 mg/dL (NEGATIVE); URINE SPECIFIC GRAVITY 1.017; UROBILINOGEN,URINE NEGATIVE mg/dL (<2.0)
[2020-06-27 18:36] LABS: ALBUMIN 3.8 g/dL (3.5-5.0); ALKALINE PHOSPHATASE 85 U/L (38-126); ANION GAP 8 (5-19); ASPARTATE AMINO TRANSFERASE 20 U/L (14-36); BILIRUBIN,DIRECT 0.2 mg/dL (0.0-0.4); BILIRUBIN,TOTAL 0.5 mg/dL (0.2-1.3); BLOOD UREA NITROGEN 8 mg/dL (7-20); CALCIUM 9.1 mg/dL (8.4-10.2); CARBON DIOXIDE 28 mmol/L (22-30); CHLORIDE 103 mmol/L (98-107); GLUCOSE 91 mg/dL (75-110); POTASSIUM 4.3 mmol/L (3.6-5.0)
--- NOTE | 2020-06-27 20:00 | RADIOLOGY REPORT (SQ) ---
EXAM DESCRIPTION: MRI LUMBAR SPINE COMBO IMAGES COMPLETED DATE/TIME: 06/27/2020 7:38 pm REASON FOR STUDY: Lumbar pain saddle anesthesia with urinary inconti COMPARISON: None. TECHNIQUE: Sagittal and Axial imaging includes T1, T1 post gadolinium, T2, STIR and gradient echo se quences. Coronal T2/HASTE imaging. CONTRAST TYPE AND DOSE: 2 mL Prohance. RENAL FUNCTION: Not indicated. ACR Type II contrast agent associated with few, if any, unconfounded cases of NSF LIMITATIONS: None. FINDINGS: VISUALIZED UPPER ABDOMEN: Limited evaluation. No acute or suspicious findings suggested. SEGMENTATION: No transitional anatomy. The lowest well-developed disc space is labeled L5-S1. ALIGNMENT: Anatomic. VERTEBRAE: Intact. No fractures. BONE MARROW: Normal. No marrow replacement or reactive changes. DISC SIGNAL: Decreased T2 signal intensity at L5-S1. POSTERIOR ELEMENTS: Generally intact. No pars defect evident. HARDWARE: None in the spine. CORD AND CONUS: Normal in size and signal intensity. Conus at the L2 level. SOFT TISSUES: No aortic aneurysm seen. No bulky retroperitoneal adenopathy or mass. No paraspinal mas s or fluid. L1-L2: No significant spinal stenosis or exit foraminal stenosis. L2-L3: No significant spinal stenosis or exit foraminal stenosis. L3-L4: No significant spinal stenosis or exit foraminal stenosis. L4-L5: No significant spinal stenosis or exit foraminal stenosis. L5-S1: No significant spinal stenosis or exit foraminal stenosis. LOWER THORACIC: Incompletely imaged. No stenosis seen. SACRUM: Visualized upper sacrum intact. ENHANCEMENT: No abnormal enhancement. OTHER: No other significant findings. IMPRESSION: NORMAL MRI LUMBAR SPINE. TECHNICAL DOCUMENTATION: JOB ID: [id number] 2010 [employer]- All Rights Reserved Reading location - IP/workstation name: [email or web address]
[2020-06-27] MEDS ORDERED: FENTANYL CITRATE INJ/PF 100 MCG/2 ML AMPUL IV ONE (21:59)
[2020-06-27] MEDS ORDERED: CEPHALEXIN 500 MG CAPSULE PO ONE (22:00)
[2020-06-27] MEDS ORDERED: ONDANSETRON HCL INJ/PF 4 MG/2 ML SDV IV ONE (22:00)
--- NOTE | 2020-06-27 22:10 | ER Document Report ---
Entered by ISATU BROWER SCRIBE 06/27/20 [id number] Acting as scribe for:RE GASCA DO ED Neck/Back Problem - General Chief Complaint: Back Pain Stated Complaint: BACK PAIN,LEG PAIN/TINGLING Time Seen by Provider: 06/27/20 17:03 Primary Care Provider: SÁNCHEZ STEWART PA-C [Primary Care Provider] - Follow up as needed Mode of Arrival: Ambulatory Information source: Patient Notes: This 34 year old female patient presents to the emergency department today with complaints of lower back pain resulting from a fall that occurred at the end of May. Patient reports that she fell partially through a rotted front porch and hurt her back and has been seeing her PCP for this but did not get relief with steroids or muscle relaxers. Patient mentioned in triage that she has been urinating on herself sometimes at night. TRAVEL OUTSIDE OF THE [place] IN LAST 30 DAYS: No - Related Data Allergies/Adverse Reactions: No Known Allergies Allergy (Verified 06/27/20 17:03) Home Medications: effexor. amitrip. gabapentin. vit d. iron. magnesium. prednisone. meloxicam. fish oil Past Medical History - General Information source: Patient - Social History Smoking Status: Current Every Day Smoker Cigarette use (# per day): Yes Chew tobacco use (# tins/day): No Frequency of alcohol use: None Drug Abuse: Marijuana Lives with: Family Family History: Reviewed & Not Pertinent Patient has homicidal ideation: No Psychiatric Medical History: Reports: Hx Depression Traumatic Medical History: Reports: Hx Fractures Past Surgical History: Reports: Hx Section - x3, Hx Tubal Ligation - Immunizations Immunizations up to date: Yes Hx Diphtheria, Pertussis, Tetanus Vaccination: Yes Review of Systems - Review of Systems Constitutional: No symptoms reported EENT: No symptoms reported Cardiovascular: No symptoms reported Respiratory: No symptoms reported Gastrointestinal: No symptoms reported Genitourinary: No symptoms reported Female Genitourinary: No symptoms reported Musculoskeletal: See HPI, Back pain Skin: No symptoms reported Hematologic/Lymphatic: No symptoms reported Neurological/Psychological: No symptoms reported -: Yes All other systems reviewed and negative Physical Exam - Vital signs Vitals: Temp Pulse Resp BP Pulse Ox 98.5 F 85 18 145/98 H 99 06/27/20 16:21 06/27/20 16:21 06/27/20 16:21 06/27/20 16:21 06/27/20 16:21 - Notes Notes: Physical Exam: General: Alert, morbidly obese. HEENT: Normocephalic. Atraumatic. PERRL. Extraocular movements intact. Oropharynx clear. Neck: Supple. Non-tender. Respiratory: No respiratory distress. Clear and equal breath sounds bilaterally. Cardiovascular: Regular rate and rhythm. Abdominal: Morbidly obese. Non-tender. No distension. Normal Bowel Sounds. Back: Midline tenderness with palpation over T12-L1. Extremities: Moves all four extremities. Upper extremities: Normal inspection. Normal ROM. Lower extremities: Normal inspection. No edema. Normal ROM. Neurological: Normal cognition. AAOx4. Normal speech. Psychological: Normal affect. Normal Mood. Skin: Warm. Dry. Normal color. Course - Re-evaluation Re-evalutation: 06/27/20 22:11 MDM 34 year old female with morbid obesity arrives after fall at home about a month ago. Broke right toe - 2nd toe right foot - and injured back. Back has been slow to respond. Now with urinary incontinence at times and tremendously increased back pain. No fever. Not a diabetic. MRI here is normal and perhaps UTI but currently having menstral period. - Vital Signs Vital signs: Temp Pulse Resp BP Pulse Ox 97.9 F 76 16 146/84 H 100 06/27/20 22:44 06/27/20 22:44 06/27/20 22:44 06/27/20 22:44 06/27/20 22:44 - Laboratory Result Diagrams: 06/27/20 17:44 06/27/20 17:44 Laboratory results interpreted by me: 06/27/20 06/27/20 17:44 17:44 RDW 15.7 H Urine Protein 100 H Urine Blood LARGE H Ur Leukocyte Esterase TRACE H - Diagnostic Test Radiology reviewed: Reports reviewed Discharge - Discharge Clinical Impression: Back pain Qualifiers: Back pain location: low back pain Chronicity: acute Back pain laterality: bilateral Sciatica presence: without sciatica Qualified Code(s): M54.5 - Low back pain UTI (urinary tract infection) Qualifiers: Urinary tract infection type: acute cystitis Hematuria presence: with hematuria Qualified Code(s): N30.01 - Acute cystitis with hematuria Condition: Stable Disposition: HOME, SELF-CARE Instructions: Ice Packs ([facility]), Low Back Pain ([facility]), Muscle Strain ([facility]), Oral Narcotic Medication ([facility]), Pain Medication Injection ([facility]) Additional Instructions: See your doctor in follow up. Take your medicine as directed. Take the antibiotics until finished. Please return here for increased pain, other problems or other concerns. Prescriptions: Cephalexin Monohydrate [Keflex 500 mg Capsule] 500 mg PO TID #15 capsule Referrals: SÁNCHEZ STEWART PA-C [Primary Care Provider] - Follow up as needed I personally performed the services described in the documentation, reviewed and edited the documentation which was dictated to the scribe in my presence, and it accurately records my words and actions.
[2020-06-27] MEDS ORDERED: HYDROCODONE/ACETAMINOPHEN 5-325 MG (6 TAB/ER DISP) PO PRN (22:15)
[2020-06-27 22:53] VITALS: BP 146/84
== END 2020-06-27 22:49 | disposition home or self-care (01) ==
LOC: ER 16:15
DX: N30.01 Acute cystitis with hematuria (principal); M54.5 Low back pain; M54.9 Dorsalgia, unspecified; R20.0 Anesthesia of skin; Z79.899 Other long term (current) drug therapy; F17.210 Nicotine dependence, cigarettes, uncomplicated
CPT/HCPCS: 99285; 96374; 96375; 36415; 84703; 85025; 80053; 81001; 72158; A9576; J3010; J2405